=== PATIENT | female | born 1970 | race Caucasian/White ===

== ENCOUNTER 2021-05-29 06:00 | Day surgery (SDC) | payer MEDICAID, SELFPAY ==
[~2021-05-29] VITALS: Ht 160 cm; Wt 113.4 kg
[~2021-05-29 06:00] MED LIST: HYDR-3919 PO; IBUP-1970 PO; NEU300 PO; SOMA PO
[2021-05-29] MEDS ORDERED: NS 1000 ML IV.SOLN IV ONE (07:27)
[2021-05-29] MEDS ORDERED: METOCLOPRAMIDE HCL 10 MG/2 ML VIAL IVP ONE (07:27)
[2021-05-29] MEDS ORDERED: PROPOFOL 200MG/ 20ML VIAL (DIPRIVAN) IV ONE (07:27)
[2021-05-29] MEDS ORDERED: ONDANSETRON HCL 4 MG/2 ML VIAL IVP ONE (07:27)
[2021-05-29] MEDS ORDERED: MIDAZOLAM HCL 5 MG/5 ML VIAL IVP ONE (07:27)
[2021-05-29] MEDS ORDERED: KETAMINE HCL 500 MG/10 ML VIAL IVP ONE (07:27)
[2021-05-29] MEDS ORDERED: LR 1,000 ML IV SCH (08:30)
[2021-05-29] MEDS ORDERED: KETOROLAC TROMETHAMINE 30 MG VIAL IVP PRN (08:30)
[2021-05-29] MEDS ORDERED: ONDANSETRON HCL 4 MG/2 ML VIAL IVP PRN (08:30)
[2021-05-29] MEDS ORDERED: KETOROLAC TROMETHAMINE 30 MG VIAL ONE (08:33)
[2021-05-29 11:35] VITALS: BP_SYST 145
== END 2021-05-29 10:00 | disposition home or self-care (01) ==
LOC: SDS 06:00 → SMU 06:00 → SDS 10:00
PROVIDERS: ATTEND Internal Medicine Gastroenterology
DX: R19.4 Change in bowel habit (principal); D12.3 Benign neoplasm of transverse colon; D12.5 Benign neoplasm of sigmoid colon; K64.8 Other hemorrhoids; R14.0 Abdominal distension (gaseous); I10 Essential (primary) hypertension; J44.9 Chronic obstructive pulmonary disease, unspecified; K21.9 Gastro-esophageal reflux disease without esophagitis; E78.00 Pure hypercholesterolemia, unspecified; E66.01 Morbid (severe) obesity due to excess calories; F17.200 Nicotine dependence, unspecified, uncomplicated; Z79.899 Other long term (current) drug therapy; Z20.822 Contact with and (suspected) exposure to COVID-19
CPT/HCPCS: 45380; 45385; 88305; J1885; U0003; J2250; J2405; J2704; J2765; J7030

== ENCOUNTER 2022-03-30 19:41 | Emergency (ER) | payer MEDICAID ==
[~2022-03-30] VITALS: Ht 162.6 cm; Wt 115.7 kg
[2022-03-30 19:49] VITALS: BP_SYST 115
--- NOTE | 2022-03-30 19:50 | NUR ---
Patient triaged and placed in waiting room. VSS and patient appears in no acute distress at this time. Accompanied by , awaiting available bed, and MD notified of need for MSE.
--- NOTE | 2022-03-30 20:00 | NUR ---
Patient left without being seen.
== END 2022-03-30 20:00 | disposition left against medical advice (07) ==
LOC: SED 19:41
DX: R06.02 Shortness of breath (principal); Z53.21 Procedure and treatment not carried out due to patient leaving prior to being seen by health care provider